=== PATIENT | male | born 1940 | race Caucasian/White ===

== ENCOUNTER → 2018-05-06 16:03 | Outpatient (CLI) | payer MEDICARE, SELFPAY ==
--- NOTE | 2018-05-06 | DI.MRI.S_ITS ---
PROCEDURE: MRFOOT LT WO CON INDICATIONS: Pain in left foot TECHNIQUE: Noncontrast sagittal T1 spin echo and T2 fast spin echo with fat saturation, long-axis T1 spin echo and T2 fast spin echo with fat saturation, short-axis T1 spin echo and T2 fast spin echo with fat saturation through the forefoot. COMPARISON: None. FINDINGS: Image quality: Excellent. Bones and joints: No bone marrow contusions or metatarsal stress fractures. The sesamoid bones appear in expected positions, without internal edema. Mild to moderate osteoarthritic changes throughout the visualized mid foot and forefoot joints are seen more prominent in first MTP joint. No intraosseous lesions. Soft tissues: The visualized plantar foot muscles demonstrate normal signal and bulk. Visualized flexor and extensor tendons appear intact, without tenosynovitis. The distal insertions of the peroneus brevis and longus tendons appear intact. The principal Lisfranc ligament appears intact. No soft tissue ganglion cysts or bursal fluid collections. Sagittal images demonstrate no evidence for plantar plate tears. 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 No evidence of stress fracture. No marrow edema. Tendons and ligaments of mid foot and forefoot are grossly intact. Dictated by: Castillo Zhu M.D. on 05/06/2018 at 17:28 Approved by: Castillo Zhu M.D. on 05/06/2018 at 17:33
== END ==
PROVIDERS: PCP Internal Medicine; Visit Provider Podiatrist
DX: M79.672 Pain in left foot (principal); M19.072 Primary osteoarthritis, left ankle and foot
CPT/HCPCS: 73718

== ENCOUNTER → 2020-06-07 13:41 | Outpatient (CLI) | payer MEDICARE, SELFPAY ==
[2020-06-07 16:40] LABS: COVID19 -Nasal RAPID Negative (Negative)
== END ==
PROVIDERS: PCP Internal Medicine; Visit Provider Student in an Organized Health Care Education/Training Program
DX: Z01.812 Encounter for preprocedural laboratory examination (principal); Z20.822 Contact with and (suspected) exposure to COVID-19
CPT/HCPCS: 87635; C9803

== ENCOUNTER 2020-06-09 10:41 | Day surgery (SDC) | payer MEDICARE, SELFPAY ==
[2020-06-09] VITALS (9 sets, daily range): BP systolic 119–135; BP diastolic 61–72; PULSE 53–59; RESP 10–20; TEMP 36.3–36.4; O2SAT 91–99; BMI 24.6
--- NOTE | 2020-06-09 | PATH_ITS ---
[facility] Accession Number: [id number] . 01 Material submitted: . esophagus, E-G Junction - GE JUNCTION . 01 Clinical history: . A: GUAN'S . 02 Diagnosis: Gastroesophageal Junction, Biopsy: Squamocolumnar junctional mucosa with mild chronic inflammation. Negative for intestinal metaplasia. Negative for dysplasia and malignancy. [facility] 06/14/2020 1520 Local . 02 Electronically signed: . Charlotte Francisco MD, Pathologist NPI- [id number] . 01 Gross description: . The specimen is received in formalin labeled GE junction and consists of multiple jasso-pink fragments of soft tissue, measuring 1.0 x 0.7 x 0.2 cm in aggregate. The specimen is entirely submitted in cassette A1. ([id number]) /[facility] 06/10/2020 1633 Local . 02 Pathologist provided ICD-10: R13.10 . 02 CPT . 652885 Performed at: 01 [facility] [address], [place], [place] [id number] MD Olman Garcia MD Phone: [phone] Performed at: [facility] [address] [place], [place] [id number] MD Charlotte Francisco MD Phone: [phone]
[2020-06-09] MEDS: SODIUM CHLORIDE 0.9% 1,000 ML 84 ML IV (11:13)
--- NOTE | 2020-06-09 12:32 | PM.HP.1 ---
History of Present Illness History of Present Illness Date Patient Seen: 06/09/20 Chief complaint: SDC Narrative: History of Hernandez's esophagus Patient History Family & Social History Social History: household members spouse Tobacco & Substance use: Smoking Status Former smoker alcohol intake never Substance Use Type does not use Meds Home Medications and Allergies Home Medications Medication Instructions Recorded Confirmed Type latanoprost [Xalatan] 1 drp EYE-BOTH DAILY 06/09/20 06/09/20 History omeprazole 40 mg PO DAILY 06/09/20 06/09/20 History Allergies Allergy/AdvReac Type Severity Reaction Status Date / Time Penicillins Allergy Mild Verified 06/09/20 11:02 Exam Vital Signs (past 8 hours): - 06/09/20 11:04 Temperature 97.4 F L Pulse Rate 53 L Respiratory Rate 18 Blood Pressure 131/68 Pulse Oximetry 99 Oxygen Delivery Method Room Air Narrative Exam Narrative: Oropharynx free of lesions Chest clear to auscultation percussion Cardiac exam reveals no S3 or murmur Assessment & Plan Assessment & Plan narrative: History of Hernandez's esophagus need for follow-up EGD. Risks, benefits, alternatives have been explained. This will probably be his last upper endoscopy given his age.
--- NOTE | 2020-06-09 12:33 | P.OP.ENDO_ITS ---
Operative Date/Time/Diagnoses Date of procedure: 06/09/20 Pre-op diagnosis: See indication and findings Procedure & Clinicians Study performed: EGD Same procedure as scheduled: Yes Indications: Hernandez's esophagus Surgeon: Brian Gardner Procedure Notes Procedure in detail: After informed consent was obtained the patient was placed in left lateral decubitus position. The video upper scope was placed into the oropharynx and with the patient's help swallowed into the esophagus. The esopha racheal stomach and duodenum were carefully examined. On withdrawal, retroflexed view the GE junction was performed. The scope was removed. The patient tolerated procedure well. Blood loss none Complications none Sedation Total sedation time 11 minutes Versed 3 mg fentanyl 100 micro g IV titration Findings 1. Hernandez's esophagus from 33-35 cm. Classification C2 M2. Two biopsies taken in 4 quadrants and placed in same jar. 2. 5 cm hiatal hernia with diaphragmatic hiatus at 40 cm 3. Multiple small gastric polyps in the body 4. Normal duodenal bulb and sweep Given Mr. Tate age I do not think he needs follow-up EGD unless something surprising is found on biopsies. We will be in touch regarding the biopsy results.
[2020-06-09] MEDS: fentaNYL 250 MCG/5 ML INJ IV (12:36)
[2020-06-09] MEDS: MIDAZOLAM 5 MG/5 ML VIAL IV (12:36)
== END 2020-06-09 13:40 | disposition home or self-care (01) ==
PROVIDERS: PCP Internal Medicine; Referring Provider Internal Medicine; Visit Provider Internal Medicine Gastroenterology
PROC: 0DJ08ZZ Inspection of Upper Intestinal Tract, Via Natural or Artificial Opening Endoscopic (ICD-10-PCS; CPT 43235; principal; 2020-06-09 12:30)
DX: K20.90 Esophagitis, unspecified without bleeding (principal); K44.9 Diaphragmatic hernia without obstruction or gangrene; K31.7 Polyp of stomach and duodenum
CPT/HCPCS: 43239; J2250; J3010

== ENCOUNTER → 2021-12-06 13:32 | Outpatient (CLI) | payer MEDICARE, SELFPAY ==
--- NOTE | 2021-12-06 | DI.MRI.S_ITS ---
PROCEDURE: MR HEAD/BRAIN WO/W CON INDICATIONS: CONGNITIVE IMPAIRMENT TECHNIQUE: Noncontrast axial T1 spin echo, axial T2 fast spin echo, sagittal and axial FLAIR, coronal T2 fast spin echo, axial gradient echo, axial diffusion and ADC through the brain. After the administration of contrast, axial and coronal and sagittal T1 spin echo with fat saturation through the brain. COMPARISON: None. FINDINGS: Image quality: This examination is limited by involuntary motion artifact. CSF spaces: Basal cisterns are patent. No extra-axial fluid collections. Ventricles are normal in size and shape. Brain: No midline shift. No intracranial bleeds or masses. No abnormal intracranial enhancement. There is cerebral volume loss for age. There is periventricular white matter chronic small vessel ischemic change. The brainstem appears normal. Diffusion-weighted images demonstrate no acute ischemic insults. No chronic ischemic insults. Normal intravascular flow voids are present. Skull and face: Calvarial marrow is normal in signal. Orbits appear normal. Sinuses: Sinuses and mastoids appear clear. IMPRESSION: Unremarkable intracranial study for age, with brain parenchymal volume loss and chronic small vessel ischemic change. No findings of acute or subacute infarction can be seen. No masses or abnormal enhancement can be seen. Dictated by: Abel Rg M.D. on 12/06/2021 at 14:00 Approved by: Abel Rg M.D. on 12/06/2021 at 14:01
== END ==
PROVIDERS: PCP Student in an Organized Health Care Education/Training Program; Referring Provider Psychiatry & Neurology Neurology; Visit Provider Psychiatry & Neurology Neurology
DX: R41.89 Other symptoms and signs involving cognitive functions and awareness (principal)
CPT/HCPCS: 70553; A9579